=== PATIENT | male | born 1980 | race Caucasian/White ===

== ENCOUNTER 2019-02-08 21:29 | Emergency (ER) | payer SELFPAY ==
[~2019-02-08] VITALS: Ht 170.2 cm; Wt 75.0 kg
[2019-02-08] MEDS ORDERED: IBUPROFEN 600MG TABLET PO STA (23:37)
[2019-02-09 01:49] VITALS: BP 106/64
== END 2019-02-09 02:19 | disposition home or self-care (01) ==
LOC: ER 22:32
DX: S83.91XA Sprain of unspecified site of right knee, initial encounter (principal); F17.210 Nicotine dependence, cigarettes, uncomplicated; X50.1XXA Overexertion from prolonged static or awkward postures, initial encounter; Y93.89 Activity, other specified; Y92.018 Other place in single-family (private) house as the place of occurrence of the external cause
CPT/HCPCS: 73562; 99283